=== PATIENT | female | born 1975 | race Caucasian/White ===

== ENCOUNTER 2022-11-20 12:49 | Outpatient (RCR) | payer MEDICAID, SELFPAY ==
--- NOTE | 2022-11-20 14:09 | PT.OPEX ---
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 INV=30, EV=20. rearfoot varus =2, FF varus = 10 Strength ankle MMTs are all 5/5 and painfree bilaterally Assessment Assessment/Impression Fadumo is back in for another pair of orthotics because about 1 month ago she started having right great toe MTP pain due to her arthritis. She has worn this pair of orthotics 1+ year so it is about time to replace them anyway. Pt states that while wearing her orthotics she can walk her dog and hike without foot/toe pain. Pts ankle ROM is good. Her forefoot varus is very significant on the right. She overpronates bilaterally. Pt will benefit from skilled PT for custom orthotic fabrication Plan of Care Rehabilitation Potential Excellent Physical Therapy Goals 1. pt will be able to continue to walk her dog and go hiking without right 1st MTP pain Coordination/Communication With Referral Source Treatment Plan/Direct Interventions Orthotics/Braces Patient Will Be Discharged From Therapy Independently Progressing Evaluation Billing Complexity Low Certification Information Physician Comment/Change : Physician NPI Number #
== END 2023-01-01 14:37 | disposition home or self-care (01) ==
PROVIDERS: PCP Family Medicine; Visit Provider Family Medicine
DX: M19.071 Primary osteoarthritis, right ankle and foot (principal); Z51.89 Encounter for other specified aftercare
CPT/HCPCS: 97161; 97760; 97763

== ENCOUNTER 2023-05-05 07:30 | Outpatient (CLI) | payer MEDICAID, SELFPAY | END 2023-05-05 07:31 | disposition home or self-care (01) | LOC: NFLDREF 10:27 | PROVIDERS: PCP Family Medicine; Referring Provider Family Medicine; Visit Provider Family Medicine | DX: Z00.00 Encounter for general adult medical examination without abnormal findings (principal); I10 Essential (primary) hypertension; E03.9 Hypothyroidism, unspecified; E53.8 Deficiency of other specified B group vitamins; E66.9 Obesity, unspecified; Z13.6 Encounter for screening for cardiovascular disorders | CPT/HCPCS: 80053; 80061; 82607 ==

== ENCOUNTER 2023-05-08 07:50 | Outpatient (CLI) | payer MEDICAID, SELFPAY | END 2023-05-08 07:51 | disposition home or self-care (01) | PROVIDERS: PCP Family Medicine; Visit Provider Family Medicine | DX: D50.9 Iron deficiency anemia, unspecified (principal); E03.9 Hypothyroidism, unspecified; E53.8 Deficiency of other specified B group vitamins; E56.9 Vitamin deficiency, unspecified; Z78.9 Other specified health status | CPT/HCPCS: 82306; 82728; 84439; 84443 ==

== ENCOUNTER 2023-07-24 07:46 | Outpatient (CLI) | payer MEDICAID, SELFPAY | END 2023-07-24 07:47 | disposition home or self-care (01) | LOC: NFLDREF 07-25 06:45 | PROVIDERS: PCP Family Medicine; Referring Provider Family Medicine; Visit Provider Family Medicine | DX: E03.9 Hypothyroidism, unspecified (principal); I10 Essential (primary) hypertension; R79.89 Other specified abnormal findings of blood chemistry | CPT/HCPCS: 84439; 84443 ==

== ENCOUNTER 2023-08-27 09:44 | Outpatient (CLI) | payer MEDICAID, SELFPAY | END 2023-08-27 09:45 | disposition home or self-care (01) | LOC: NFLDREF 14:49 | PROVIDERS: PCP Family Medicine; Referring Provider Family Medicine; Visit Provider Family Medicine | DX: I10 Essential (primary) hypertension (principal) | CPT/HCPCS: 80048 ==

== ENCOUNTER 2023-10-15 10:12 | Outpatient (CLI) | payer MEDICAID, SELFPAY ==
--- NOTE | 2023-10-15 10:15 | CRLHL7_ITS ---
For Patients: As a result of the Century Cures Act, medical imaging exams and procedure reports are released immediately into your electronic medical record. You may view this report before your referring provider. If you have questions, please contact your health care provider. BILATERAL SCREENING MAMMOGRAM WITH COMPUTER-AIDED DETECTION AND TOMOSYNTHESIS TECHNIQUE: CC and MLO views were obtained. These mammographic images have been obtained using full-field digital technique. These mammographic images were interpreted with the benefit of computer-aided detection. Breast Tomosynthesis was used in this interpretation. COMPARISON FILM: 02/13/22, 09/25/20, 09/21/19. FINDINGS: There are scattered areas of fibroglandular density IMPRESSION: There is no radiographic evidence for malignancy. ASSESSMENT: BI-RADS Category 1: Negative RECOMMENDATION: Routine screening mammogram in 1 year. A lay language report of this examination will be provided to the patient. Sebastian Vogt M.D. Diagnostic Radiologist [email or web address] JUDIT/Dictated by: Sebastian Vogt MD @ 10/15/2023 1:34:00 PM (Electronically Signed)
== END 2023-10-15 10:13 | disposition home or self-care (01) ==
LOC: MAMMO 10:13
PROVIDERS: PCP Family Medicine; Visit Provider Family Medicine
DX: Z12.31 Encounter for screening mammogram for malignant neoplasm of breast (principal)
CPT/HCPCS: 77063; 77067

== ENCOUNTER 2023-11-11 08:55 | Outpatient (CLI) | payer MEDICAID, SELFPAY | END 2023-11-11 08:56 | disposition home or self-care (01) | LOC: NFLDREF 11-12 08:09 | PROVIDERS: PCP Family Medicine; Referring Provider Family Medicine; Visit Provider Family Medicine | DX: I10 Essential (primary) hypertension (principal) | CPT/HCPCS: 80048 ==

== ENCOUNTER 2023-12-19 09:48 | Outpatient (CLI) | payer MEDICAID, SELFPAY ==
--- NOTE | 2023-12-19 10:53 | W.ANESCHARGE ---
Anesthesia Charges Start Date/Time Anesthesia Start Date: 12/19/23 Anesthesia Start Time: 10:38 Stop Date/Time Anesthesia Stop Date: 12/19/23 Anesthesia Stop Time: 11:00
--- NOTE | 2023-12-19 11:03 | W.ANESCHARGE ---
Anesthesia Charges Start Date/Time Anesthesia Start Date: 12/19/23 Anesthesia Start Time: 10:38 Stop Date/Time Anesthesia Stop Date: 12/19/23 Anesthesia Stop Time: 11:00
== END 2023-12-19 09:49 | disposition home or self-care (01) ==
LOC: OP CLINIC 09:49
PROVIDERS: PCP Family Medicine; Visit Provider Internal Medicine
DX: Z12.11 Encounter for screening for malignant neoplasm of colon (principal)
CPT/HCPCS: 00811; 00812; 45378; J2704

== ENCOUNTER 2024-06-29 08:15 | Outpatient (CLI) | payer MEDICAID, SELFPAY | END 2024-06-29 08:16 | disposition home or self-care (01) | LOC: NFLDREF 06-30 11:32 | PROVIDERS: PCP Family Medicine; Referring Provider Family Medicine; Visit Provider Family Medicine | DX: Z00.00 Encounter for general adult medical examination without abnormal findings (principal); I10 Essential (primary) hypertension; E03.9 Hypothyroidism, unspecified; D50.9 Iron deficiency anemia, unspecified; E53.8 Deficiency of other specified B group vitamins; E78.5 Hyperlipidemia, unspecified; E55.9 Vitamin D deficiency, unspecified; E66.9 Obesity, unspecified | CPT/HCPCS: 80053; 80061; 82306; 82607; 82728; 84439; 84443 ==

== ENCOUNTER 2024-10-20 15:35 | Outpatient (CLI) | payer MEDICAID, SELFPAY ==
--- NOTE | 2024-10-20 15:45 | CRLHL7_ITS ---
For Patients: As a result of the Century Cures Act, medical imaging exams and procedure reports are released immediately into your electronic medical record. You may view this report before your referring provider. If you have questions, please contact your health care provider. INDICATION: Ovulation bleeding COMPARISON: none TECHNIQUE: 2D king scale and color Doppler images were acquired of the pelvis using a transabdominal and transvaginal approach. FINDINGS: Hypoechoic right uterine fibroid is present, partially exophytic, measuring 14 x 10 x 17 millimeters. Uterus measures 8.6 cm in length by 3.5 cm in AP diameter by 4.4 cm in transverse dimension. Endometrium measures 2 millimeters. Hyperechoic and vascular nodule is present within the endocervical endometrial canal with a small amount of adjacent fluid. The right ovary measures 2.9 x 0.7 x 1.2 cm in size and the left ovary measures 1.7 x 0.7 x 1.2 cm. The ovaries demonstrate normal arterial and venous blood flow on color Doppler analysis. There are no suspicious fluid collections within the cul-de-sac. IMPRESSION: Probable endocervical polyp measuring 7 millimeters with a small amount of adjacent fluid. Dictated by Sebastian Vogt MD @ 10/22/2024 12:23:46 PM (Electronically Signed)
== END 2024-10-20 15:36 | disposition home or self-care (01) ==
LOC: US 15:36
PROVIDERS: PCP Family Medicine; Visit Provider Obstetrics & Gynecology
DX: N92.3 Ovulation bleeding (principal)
CPT/HCPCS: 76830; 76856

== ENCOUNTER 2024-10-22 11:39 | Outpatient (CLI) | payer MEDICAID, SELFPAY | END 2024-10-22 11:40 | disposition home or self-care (01) | LOC: NFLDREF 17:56 | PROVIDERS: PCP Family Medicine; Referring Provider Family Medicine; Visit Provider Family Medicine | DX: E03.9 Hypothyroidism, unspecified (principal) | CPT/HCPCS: 84443 ==

== ENCOUNTER 2024-12-07 07:04 | Day surgery (SDC) | payer MEDICAID, SELFPAY ==
[2024-12-07 07:17] VITALS: BMI 34.7
[2024-12-07 07:47] LABS: Ur HCG Qualitative* Negative (Negative)
[2024-12-07 07:48] VITALS: BP 152/88; PULSE 74; RESP 16; TEMP 36.5; O2SAT 98
[2024-12-07] MEDS: 0.9 % SODIUM CHLORIDE 500 ML 500 ML 100 ML IV (07:50)
[2024-12-07] MEDS: SILVER NITRATE APPLICATOR 1 EACH STICK..EA. TOPICAL (08:35)
[2024-12-07] MEDS: LIDOCAINE 1% MDV 10 ML INJECTION (08:35)
[2024-12-07 08:56] VITALS: BP 159/92; PULSE 59; RESP 18; TEMP 37.1; O2SAT 95
--- NOTE | 2024-12-07 08:57 | P.ANES_ITS ---
Anesthesia Charges Start Date/Time Anesthesia Start Date: 12/07/24 Anesthesia Start Time: 08:12 Stop Date/Time Anesthesia Stop Date: 12/07/24 Anesthesia Stop Time: 08:54 Coding CPT Codes CPT Codes: ANESTH HYSTEROSCOPE/GRAPH - 03781 ([id number]) P2 - PATIENT W/MILD SYST DISEASE, QK - PARTNER MARKETING MANAGER 2-4 CNCRNT ANES PROC, QX - DATA INTEGRATION ANALYST SVC W/ MD MED DIRECTION
--- NOTE | 2024-12-07 08:57 | W.ANESCHARGE ---
Anesthesia Charges Start Date/Time Anesthesia Start Date: 12/07/24 Anesthesia Start Time: 08:12 Stop Date/Time Anesthesia Stop Date: 12/07/24 Anesthesia Stop Time: 08:54 Coding CPT Codes CPT Codes: ANESTH HYSTEROSCOPE/GRAPH - 97483 ([id number]) P2 - PATIENT W/MILD SYST DISEASE, QK - DEPUTY FIRE CHIEF 2-4 CNCRNT ANES PROC, QX - TRIMMING CASER SVC W/ MD MED DIRECTION
[2024-12-07 09:11] VITALS: BP 168/90; PULSE 57; RESP 16; O2SAT 98
--- NOTE | 2024-12-07 09:11 | P.GYNPRC_ITS ---
Procedure Note Date of procedure: 12/07/24 Will [facility] bill your pro fee for this procedure?: Yes Pre-op diagnosis: Breakthrough bleeding on combined oral contraceptives Suspected endocervical polyp on recent ultrasound Post-op diagnosis: Breakthrough bleeding on combined oral contraceptives Normal endocervix and endometrial cavity Procedure: Hysteroscopy with visual dilation and curettage Placement of Mirena IUD Anesthesia: MAC and local Complications: None Surgeon: Nicolette Tovar MD Estimated blood loss (mL): 5 IV fluids (mL): 300 Urine Output (mL): 20 Pathology: specimen obtained, sent to pathology (Endometrial curettings) Condition: stable Disposition: same day Findings: 1. Upon pelvic exam under anesthesia, the cervix and vagina were normal in appearance. Uterus was mobile and anteverted, of normal size and texture. There were no palpable adnexal masses. 2. Upon hysteroscopy, survey of the endocervix and endometrial cavity were normal. Bilateral tubal ostia were normal. There were no polyps, and the endometrium was uniform and thin in appearance. 3. Uterus sounded to 9 cm. 4. Saline deficit 95 mL Procedure Description: Procedure in detail: Patient was taken to the operating room with IV running. She was positioned in dorsal lithotomy position with her legs fully supported in Yellofin stirrups. Monitored anesthesia care was administered. She was prepped and draped in the usual sterile fashion. Exam under anesthesia was performed for the above-noted findings. Speculum was inserted. Cervix visualized and grasped along the anterior lip with a single-tooth tenaculum. Paracervical block was performed with a total of 10 mL of 1% lidocaine. Cervix was serially dilated to accommodate the TRUCLEAR hysteroscope. This was assembled with saline inflow and outflow in place. The line was flushed of bubbles. The hysteroscope was advanced through the cervix into the endometrial cavity for the above noted findings. The tissue morcellator was then inserted through the operating channel. Window lock was performed. Under direct visualization, the endometrial cavity was circumferentially curetted with the tissue morcellator. The hysteroscope and morcellator were then removed from the uterus. Uterus sounds to 9 cm. The IUD is loaded into the insertion tube, inserted to the sounded depth, and the IUD is deployed. Insertion tube was removed. Strings are trimmed to 3 cm. Tenaculum was removed from the anterior lip of cervix. Hemostasis was achieved with silver nitrate. Postoperative debrief was verbalized with OR staff, including a verification of pathology specimens to be sent as described above. Patient tolerated procedure well. She was taken to recovery area in stable condition.
[2024-12-07 09:26] VITALS: BP 162/90; PULSE 61; RESP 14; O2SAT 97
[2024-12-07] MEDS: ACETAMINOPHEN 500 MG TABLET 1000 MG PO (09:29)
[2024-12-07 09:41] VITALS: BP 152/84; PULSE 58; RESP 14; O2SAT 98
[2024-12-07 10:10] VITALS: BP 157/90; PULSE 59; RESP 12; O2SAT 97
--- NOTE | 2024-12-07 10:27 | P.ANES_ITS ---
Anesthesia Charges Start Date/Time Anesthesia Start Date: 12/07/24 Anesthesia Start Time: 08:12 Stop Date/Time Anesthesia Stop Date: 12/07/24 Anesthesia Stop Time: 08:54 Coding CPT Codes CPT Codes: ANESTH HYSTEROSCOPE/GRAPH - 66564 ([id number]) QK - PRESSURE WASHER 2-4 CNCRNT ANES PROC, QX - CABINET BUILDER SVC W/ MD MED DIRECTION, P2 - PATIENT W/MILD SYST DISEASE
--- NOTE | 2024-12-07 10:27 | W.ANESCHARGE ---
Anesthesia Charges Start Date/Time Anesthesia Start Date: 12/07/24 Anesthesia Start Time: 08:12 Stop Date/Time Anesthesia Stop Date: 12/07/24 Anesthesia Stop Time: 08:54 Coding CPT Codes CPT Codes: ANESTH HYSTEROSCOPE/GRAPH - 49498 ([id number]) QK - FRIT MIXER 2-4 CNCRNT ANES PROC, QX - ACTIVITIES SPECIALIST SVC W/ MD MED DIRECTION, P2 - PATIENT W/MILD SYST DISEASE
== END 2024-12-07 10:43 | disposition home or self-care (01) ==
LOC: OR 07:06
PROVIDERS: PCP Family Medicine; Visit Provider Obstetrics & Gynecology
PROC: 0UDB8ZZ Extraction of Endometrium, Via Natural or Artificial Opening Endoscopic (ICD-10-PCS; CPT 58558; principal; 2024-12-07 08:15)
DX: N92.1 Excessive and frequent menstruation with irregular cycle (principal); N95.1 Menopausal and female climacteric states; D50.9 Iron deficiency anemia, unspecified; G89.18 Other acute postprocedural pain
CPT/HCPCS: 58558; 58300; 00952; 36415; 81025; 86850; 86900; 86901; 88305; J2003; A9270; C1782; J1885; J2250; J2405; J2704; J3010; J3490; J7030; J7298

== ENCOUNTER 2025-01-28 13:32 | Outpatient (CLI) | payer MEDICAID, SELFPAY | END 2025-01-28 13:33 | disposition home or self-care (01) | LOC: MAMMO 13:33 | PROVIDERS: PCP Family Medicine; Visit Provider Family Medicine | DX: Z12.31 Encounter for screening mammogram for malignant neoplasm of breast (principal) | CPT/HCPCS: 77063; 77067 ==

== ENCOUNTER 2025-03-29 08:07 | Outpatient (CLI) | payer MEDICAID, SELFPAY | END 2025-03-29 08:08 | disposition home or self-care (01) | LOC: NFLDREF 04-03 05:14 | PROVIDERS: PCP Family Medicine; Referring Provider Family Medicine; Visit Provider Family Medicine | DX: I10 Essential (primary) hypertension (principal) | CPT/HCPCS: 80048 ==

== ENCOUNTER 2025-07-19 13:15 | Outpatient (CLI) | payer MEDICAID, SELFPAY | END 2025-07-19 13:16 | disposition home or self-care (01) | PROVIDERS: PCP Internal Medicine; Visit Provider Internal Medicine | DX: E03.9 Hypothyroidism, unspecified (principal); D50.8 Other iron deficiency anemias; I10 Essential (primary) hypertension | CPT/HCPCS: 80048; 82728; 84443 ==